=== PATIENT | female | born 1975 | race Caucasian/White ===

== ENCOUNTER 2018-01-13 09:07 | Emergency (ER) | payer OTHER ==
[2018-01-13] MEDS ORDERED: TORAdol 30 mg Injection IM ONE (09:31)
--- NOTE | 2018-01-13 09:31 | ERPHSYRPT ---
- History of Present Illness Time Seen by Provider: 01/13/18 09:24 Source: patient Exam Limitations: no limitations Patient Subjective Stated Complaint: Pt states "I was sitting on the couch wed night and and I must have moved to fast and now the right side of my neck is really hurting, and my arm and fingers are tingling." Triage Nursing Assessment: Pt alert and oriented X 3, skin pwd. PT tearful, fidgeting, rubbing her right neck and shoulder. PT ambulates with an upright steady gait, able to speak in clear full sentences. Physician History: The patient is a 42-year-old right-handed female complaining of right-sided neck pain that began Monday after taking a nap on the couch. The pain became worse on . On Monday the neck pain was not as severe that she started to get some pain going down towards her right shoulder. This morning her right thumb was tingling. She has taken ibuprofen without relief. She has tried ice and heat without relief. She denies any trauma to her neck. She went to [facility] this morning and was told to come to the ER. Her past medical history is significant for hypertension. Timing/Duration: day(s) (3), gradual onset, improved Severity: moderate Modifying Factors: Improves With: medication Associated Symptoms: denies symptoms Allergies/Adverse Reactions: childrens advil Allergy (Severe, Uncoded 11/27/15 20:30) Difficulty Breathing pt states she can take advil but not childrens advil. Home Medications: Dextroamphetamine/Amphetamine [Adderall Xr 30 mg] 30 mg PO DAILY 11/27/15 [ History] Hydrochlorothiazide 25 mg [hydroDIURIL 25 MG] 25 mg PO DAILY 11/27/15 [ History] Citalopram Hydrobromide [Celexa] 20 mg PO DAILY 01/13/18 [History] Hx Tetanus, Diphtheria Vaccination/Date Given: No Hx Influenza Vaccination/Date Given: No Hx Pneumococcal Vaccination/Date Given: No Immunizations Up to Date: Yes - Review of Systems Constitutional: No Fever, No Chills Eyes: No Symptoms Ears, Nose, & Throat: No Symptoms Respiratory: No Cough, No Dyspnea Cardiac: No Chest Pain, No Edema, No Syncope Abdominal/Gastrointestinal: No Abdominal Pain, No Nausea, No Vomiting, No Diarrhea Genitourinary Symptoms: No Dysuria Musculoskeletal: Neck Pain Skin: No Rash Neurological: Parasthesia Psychological: No Symptoms Endocrine: No Symptoms Hematologic/Lymphatic: No Symptoms Immunological/Allergic: No Symptoms All Other Systems: Reviewed and Negative - Past Medical History Pertinent Past Medical History: Yes Cardiac History: High Cholesterol, Hypertension - Past Surgical History Past Surgical History: Yes Gastrointestinal: Cholecystectomy Musculoskeletal: Orthopedic Surgery Female Surgical History: Section Other Surgical History: breast red - Social History Smoking Status: Current some day smoker How long have you smoked: 3 years Exposure to second hand smoke: No Drug Use: none Patient Lives Alone: No - Female History Hx Last Menstrual Period: 12/13/2017 Hx Now: No - Nursing Vital Signs Nursing Vital Signs: Initial Vital Signs Temperature 97.8 F 01/13/18 09:11 Pulse Rate 96 H 01/13/18 09:11 Respiratory Rate 20 01/13/18 09:11 Blood Pressure 208/117 01/13/18 09:11 O2 Sat by Pulse Oximetry 99 01/13/18 09:11 Pain Scale Pain Intensity 8 - Physical Exam General Appearance: mild distress Eye Exam: PERRL/EOMI, eyes nml inspection Ears, Nose, Throat Exam: normal ENT inspection, TMs normal, pharynx normal, moist mucous membranes Neck Exam: full range of motion, other (tenderness and spasm of right upper trapezius muscle) Respiratory Exam: normal breath sounds, lungs clear, No respiratory distress Cardiovascular Exam: regular rate/rhythm, normal heart sounds, normal peripheral pulses Gastrointestinal/Abdomen Exam: soft, normal bowel sounds, No tenderness, No mass Pelvic Exam: not done Rectal Exam: not done Back Exam: normal inspection, normal range of motion, No CVA tenderness, No vertebral tenderness Extremity Exam: normal inspection, normal range of motion, pelvis stable Neurologic Exam: alert, oriented x 3, cooperative, normal mood/affect, nml cerebellar function, nml station & gait, sensation nml (no sensory deficit of right thumb), No motor deficits Skin Exam: normal color, warm, dry, No rash Lymphatic Exam: No adenopathy SpO2 Interpretation: normal SpO2: 99 Oxygen Delivery: Room Air - Radiology Exams C-Spine X-ray Interpretation: Interpreted by me, Negative, No Subluxation, Other ( straightening of normal lordosis of C spine; otherwise neg C spine.) Ordered Tests: Active Orders 24 hr Category Date Time Status CERVICAL SPINE MINIMUM 4 VIEWS Stat Exams 01/13/18 09:37 Taken Medication Summary Discontinued Medications Generic Name Dose Route Start Last Admin Trade Name Antonette PRN Reason Stop Dose Admin Ketorolac Tromethamine 60 mg 01/13/18 09:31 01/13/18 09:34 Toradol 30 Mg Injection IM 01/13/18 09:32 60 mg STAT ONE Administration Ketorolac Tromethamine Confirm 01/13/18 09:33 Toradol 30 Mg Injection Administered 01/13/18 09:34 Dose 60 mg .ROUTE .STOpen English-MED ONE - Progress Progress: improved Counseled pt/family regarding: diagnosis, rad results - Departure Time of Disposition: 10:19 Departure Disposition: Home Clinical Impression: Trapezius muscle spasm Condition: Stable Critical Care Time: No Referrals: MITZI RYAN [Primary Care Provider] - Additional Instructions: You have a muscle spasm on the right side of her neck and in her right shoulder. The x-ray of your neck was without dislocation or fracture. You were given Toradol 60 mg IM in the ER. Take Flexeril 5 mg every 8 hours as needed for pain and muscle spasm. Apply ice to the area as needed. Follow-up with your primary medical doctor as needed. Prescriptions: Cyclobenzaprine HCl [Flexeril] 5 mg PO Q8H PRN PRN #10 tablet PRN Reason: Muscle Spasms
[2018-01-13] MEDS ORDERED: TORAdol 30 mg Injection ONE (09:33)
[2018-01-13 10:32] VITALS: BP 194/102; PULSE 88; O2SAT 98
--- NOTE | 2018-01-13 17:29 | XRAY ---
Indication: Right neck pain 3 days. Comparison: None 6 views of the cervical spine demonstrates cervical lordotic straightening, positional versus paraspinal spasm. Vertebral body heights and disc spaces maintained. No acute fracture, subluxation, or soft tissue abnormalities. Bilaterally patent foramina. Incidental prominent C7 transverse processes commonly seen with thoracic outlet syndrome. Impression: 1. Cervical lordotic straightening, positional versus paraspinal spasm. 2. Prominent C7 transverse processes. Rule out thoracic outlet syndrome.
== END 2018-01-13 10:41 | disposition home or self-care (01) ==
LOC: ED 09:07
DX: M62.830 Muscle spasm of back (principal); M54.2 Cervicalgia; R20.2 Paresthesia of skin; Z79.899 Other long term (current) drug therapy
CPT/HCPCS: 72050; 96372; 99284; J1885

== ENCOUNTER 2023-11-23 08:16 | Observation (INO) | payer OTHER ==
--- NOTE | 2023-11-23 08:55 | ERPHSYRPT ---
- History of Present Illness Time Seen by Provider: 11/23/23 08:28 Source: patient, family Exam Limitations: no limitations Patient Subjective Stated Complaint: pt began having numbness of the left foot yesterday while at work and didnt' think a whole lot about it, woke her up at approx 0130 with c/o of left sided numbness Triage Nursing Assessment: Pt brought to the ER by her , hypertensive, denies pain, unstable gait and leans towards the left, states that her head "feels heavy", no facial defecits, pulses normal, skin n/w/d, no difficulty breathing, denies N&V Physician History: 48-year-old female with history of tobacco use, hypertension, insomnia presented in the ER with complaint of left-sided numbness and weakness. Patient reports she started to have some tingly numb feeling in the left foot yesterday while she was working and around 1 AM she woke her as she was having numbness across her upper and lower left extremities with wobbliness and tendency to fall on the left. Also reports subjective feeling of weakness in the left upper and lower extremity. No chest pain palpitations or shortness of breath reported. No history of previous stroke but does have a family history. Denies any headache, facial numbness, weakness, visual disturbance or difficulty speech. Allergies/Adverse Reactions: childrens advil Allergy (Severe, Uncoded 11/23/23 08:49) Difficulty Breathing pt states she can take advil but not childrens advil. Home Medications: Hydrochlorothiazide 25 mg [hydroDIURIL 25 MG] 25 mg PO DAILY 11/27/15 [History] Dextroamphetamine/Amphetamine [Dextroamp-Amphetamin 30 mg Tab] 30 mg PO DAILY 11/23/23 [History] Ergocalciferol (Vitamin D2) [Vitamin D2] 50,000 unit PO Q7D 11/23/23 [History] Naproxen 500 mg [Naprosyn 500 MG] 500 mg PO BID 11/23/23 [History] Rosuvastatin Calcium 5 mg PO DAILY 11/23/23 [History] Valacyclovir HCl [valACYclovir] 1,000 mg PO UD 11/23/23 [History] Zolpidem Tartrate [Zolpidem Tartrate ER] 12.5 mg PO DAILY 11/23/23 [History] cloNIDine HCL 2 mg PO BID 11/23/23 [History] Hx Tetanus, Diphtheria Vaccination/Date Given: No Hx Influenza Vaccination/Date Given: No Hx Pneumococcal Vaccination/Date Given: No Travel Risk - International Travel Have you traveled outside of the country in past 3 weeks: No - Emerging Infectious Disease Are you exhibiting symptoms associated with any current EIDs: No - Review of Systems Constitutional: Weakness Eyes: No Symptoms Ears, Nose, & Throat: No Symptoms Respiratory: No Symptoms Cardiac: No Symptoms Abdominal/Gastrointestinal: No Symptoms Genitourinary Symptoms: No Symptoms Musculoskeletal: No Symptoms Skin: No Symptoms Neurological: Focal Weakness, Gait Changes, Sensory Changes Psychological: No Symptoms Endocrine: No Symptoms Hematologic/Lymphatic: No Symptoms Immunological/Allergic: No Symptoms - Past Medical History Pertinent Past Medical History: Yes Cardiac History: High Cholesterol, Hypertension - Past Surgical History Past Surgical History: Yes Gastrointestinal: Cholecystectomy Musculoskeletal: Orthopedic Surgery Female Surgical History: Section Other Surgical History: . - Female History Hx Now: (unkn) - Social History Smoking Status: Current every day smoker How long have you smoked: 3 years Exposure to second hand smoke: Yes Drug Use: none Patient Lives Alone: No - Social Determinants of Health Will the patient participate in the screening: Yes Do you worry about a steady place to live?: No Do you have any problems with any of the following?: No known problems In the past 12 months,have you had to go without utilities?: No Transportation Issues: No Has anyone in your support network made you feel unsafe?: No Have you or anyone in your house had to go without enough: No - Nursing Vital Signs Nursing Vital Signs: Initial Vital Signs Temperature 97.7 F 11/23/23 08:23 Pulse Rate 77 11/23/23 08:23 Respiratory Rate 20 11/23/23 08:23 Blood Pressure 202/117 11/23/23 08:23 Pain Scale Pain Intensity 0 - Vadim Coma Scale Best Eye Response (Hennessey): (4) open spontaneously Best Verbal Response (Vadim): (5) oriented Best Motor Response (Hennessey): (6) obeys commands Hennessey Total: 15 - Physical Exam General Appearance: no apparent distress, alert, anxiety Eye Exam: bilateral eye: normal inspection, PERRL, EOMI Ears, Nose, Throat Exam: normal ENT inspection, TMs normal, pharynx normal, moist mucous membranes Neck Exam: normal inspection, non-tender, supple, full range of motion Respiratory: normal breath sounds, lungs clear Cardiovascular: regular rate/rhythm, normal heart sounds Gastrointestinal: soft, normal bowel sounds, No tenderness Back Exam: normal inspection, normal range of motion Extremity Exam: normal inspection, normal range of motion, pelvis stable Mental Status: alert, oriented x 3, 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 Exam: normal hearing, normal speech, PERRL Coordination/Gait: negative Romberg's sign, No normal finger to nose (Left), No normal gait Motor/Sensory: no motor deficit, no sensory deficit DTR: bicep (R): 2+, bicep (L): 2+, knee (R): 2+, knee (L): 3+ Skin Exam: normal color SpO2 Interpretation: normal SpO2: 95 O2 Delivery: Room Air - Course EKG Interpreted by Me: RATE (67), Sinus Rhythm, NORMAL AXIS, prolonged QT interval, Non-specific ST Changes Ordered Tests: Active Orders 24 hr Category Date Time Status EKG-ER Only STAT Care 11/23/23 08:28 Active IV Insertion STAT Care 11/23/23 08:28 Active NPO (ED) STAT Care 11/23/23 08:29 Active POCT Glucose Check ONCE Care 11/23/23 08:28 Active Consult Neurology ROUTINE Cons 11/23/23 09:52 Completed CHEST 1 VIEW (PORTABLE) Stat Exams 11/23/23 08:[address] ANGIOGRAPHY NECK [CT] Stat Exams 11/23/23 09:51 Completed CTA HEAD W AND/OR WO CONTRAST [CT] Stat Exams 11/23/23 09:51 Completed HEAD WITHOUT CONTRAST [CT] Stat Exams 11/23/23 08:29 Completed CBC W DIFF Stat Lab 11/23/23 09:05 Completed CMP Stat Lab 11/23/23 09:05 Completed MAG [MAGNESIUM] Stat Lab 11/23/23 09:05 Completed POCT GLUCOSE Stat Lab 11/23/23 09:02 Completed PROTIME WITH INR Stat Lab 11/23/23 09:05 Completed PTT Stat Lab 11/23/23 09:05 Completed TROPONIN Q3H Lab 11/23/23 09:05 Completed TROPONIN Q3H Lab 11/23/23 10:52 Completed TROPONIN Q3H Lab 11/23/23 14:30 Ordered TROPONIN Q3H Lab 11/23/23 17:30 Ordered UA W/RFX UR CULTURE Stat Lab 11/23/23 09:09 Completed Medication Summary Generic Name Dose Route Start Last Admin Trade Name Antonette PRN Reason Stop Dose Admin Sodium Chloride 1,000 mls @ 125 mls/hr 11/23/23 08:30 11/23/23 08:58 Sodium Chloride 0.9% 1000 Ml IV 12/23/23 08:29 125 mls/hr .Q8H [place] Administration Discontinued Medications Generic Name Dose Route Start Last Admin Trade Name Antonette PRN Reason Stop Dose Admin Aspirin 81 mg 11/23/23 11:38 Aspirin 81 Mg Tab.Chew PO 11/23/23 11:39 STAT ONE Atorvastatin Calcium 80 mg 11/23/23 11:38 Atorvastatin Calcium 40 Mg Tablet PO 11/23/23 11:39 STAT STA Clopidogrel Bisulfate 300 mg 11/23/23 11:38 Clopidogrel Bisulfate 75 Mg Tablet PO 11/23/23 11:39 STAT ONE Lab/Rad Data: Laboratory Result Diagrams 11/23/23 09:05 11/23/23 09:05 Laboratory Results 11/23/23 11/23/23 11/23/23 Range/Units 10:52 09:09 09:05 WBC (3.98-10.04) x10^3/uL RBC (3.93-5.22) x10^6/uL Hgb (11.2-15.7) g/dL Hct (34.1-44.9) % MCV (79.4-94.8) fL MCH (25.6-32.2) pg MCHC (32.2-35.5) g/dL RDW (11.7-14.4) % Plt Count (182-369) x10^3/uL MPV (9.4-12.3) fL Gran % (34.0-71.1) % Immature Gran % (Auto) (0.001-0.429) % Nucleat RBC Rel Count (0.00-0.2) % Eos # (Auto) (0.04-0.36) x10^3/uL Immature Gran # (Auto) (0.001-0.031) x10^3u/L Absolute Lymphs (auto) (1.18-3.74) x10^3/uL Absolute Monos (auto) (0.24-0.86) x10^3/uL Absolute Nucleated RBC (0.00-0.012) x10^3u/L Lymphocytes % (19.3-51.7) % Monocytes % (4.7-12.5) % Eosinophils % (0.7-5.8) % Basophils % (0.1-1.2) % Absolute Granulocytes (1.56-6.13) x10^3/uL Basophils # (0.01-0.08) x10^3/uL PT (9.4-12.5) SECONDS INR (0.8-3.0) APTT (25.1-36.5) SECONDS Sodium (135-145) mmol/L Potassium (3.5-5.1) mmol/L Chloride (98-107) mmol/L Carbon Dioxide (22-30) mmol/L Anion Gap (5-15) MEQ/L BUN (7-17) mg/dL Creatinine (0.52-1.04) mg/dL Estimated GFR ML/MIN Glucose (74-106) mg/dL POC Glucometer (74 to 106) mg/dL Calcium (8.4-10.2) mg/dL Magnesium 2.0 (1.6-2.3) mg/dL Total Bilirubin (0.2-1.3) mg/dL AST (14-36) U/L ALT (0-35) U/L Alkaline Phosphatase (38-126) U/L Troponin I 0.013 0.013 (0.000-0.033) ng/mL Serum Total Protein (6.3-8.2) g/dL Albumin (3.5-5.0) g/dL Urine Color Yellow (Yellow) Urine Appearance Clear (Clear) Urine pH 6.0 (4.6-8.0) Ur Specific [place] 1.010 (1.005-1.030) Urine Protein Negative (Negative) Urine Glucose (UA) Negative (Negative) mg/dL Urine Ketones Negative (Negative) Urine Blood Negative (Negative) Urine Nitrite Negative (Negative) Urine Bilirubin Negative (Negative) Urine Urobilinogen 0.2 (0.2) mg/dL Ur Leukocyte Esterase Negative (Negative) U Hyaline Cast (Auto) NONE SEEN (0-2) /LPF Urine Microscopic RBC 0-2 (0-5) /HPF Urine Microscopic WBC 0-2 (0-5) /HPF Ur Epithelial Cells None Seen (None Seen) /HPF Urine Bacteria None Seen (None Seen) /HPF Urine Culture Reflexed NO (NO) 11/23/23 11/23/23 11/23/23 Range/Units 09:05 09:05 09:05 WBC 10.1 H (3.98-10.04) x10^3/uL RBC 4.17 (3.93-5.22) x10^6/uL Hgb 10.5 L (11.2-15.7) g/dL Hct 33.1 L (34.1-44.9) % MCV 79.4 (79.4-94.8) fL MCH 25.2 L (25.6-32.2) pg MCHC 31.7 L (32.2-35.5) g/dL RDW 14.6 H (11.7-14.4) % Plt Count 337 (182-369) x10^3/uL MPV 10.1 (9.4-12.3) fL Gran % 72.4 H (34.0-71.1) % Immature Gran % (Auto) 0.5 H (0.001-0.429) % Nucleat RBC Rel Count 0.0 (0.00-0.2) % Eos # (Auto) 0.34 (0.04-0.36) x10^3/uL Immature Gran # (Auto) 0.05 H (0.001-0.031) x10^3u/L Absolute Lymphs (auto) 1.52 (1.18-3.74) x10^3/uL Absolute Monos (auto) 0.81 (0.24-0.86) x10^3/uL Absolute Nucleated RBC 0.00 (0.00-0.012) x10^3u/L Lymphocytes % 15.0 L (19.3-51.7) % Monocytes % 8.0 (4.7-12.5) % Eosinophils % 3.4 (0.7-5.8) % Basophils % 0.7 (0.1-1.2) % Absolute Granulocytes 7.35 H (1.56-6.13) x10^3/uL Basophils # 0.07 (0.01-0.08) x10^3/uL PT 9.7 (9.4-12.5) SECONDS INR 0.88 (0.8-3.0) APTT 26.0 (25.1-36.5) SECONDS Sodium 133 L (135-145) mmol/L Potassium 3.4 L (3.5-5.1) mmol/L Chloride 98 (98-107) mmol/L Carbon Dioxide 26 (22-30) mmol/L Anion Gap 12.5 (5-15) MEQ/L BUN 18 H (7-17) mg/dL Creatinine 1.00 (0.52-1.04) mg/dL Estimated GFR 69.1 ML/MIN Glucose 119 H (74-106) mg/dL POC Glucometer (74 to 106) mg/dL Calcium 9.0 (8.4-10.2) mg/dL Magnesium (1.6-2.3) mg/dL Total Bilirubin 0.40 (0.2-1.3) mg/dL AST 24 (14-36) U/L ALT 18 (0-35) U/L Alkaline Phosphatase 92 (38-126) U/L Troponin I (0.000-0.033) ng/mL Serum Total Protein 7.1 (6.3-8.2) g/dL Albumin 4.2 (3.5-5.0) g/dL Urine Color (Yellow) Urine Appearance (Clear) Urine pH (4.6-8.0) Ur Specific [place] (1.005-1.030) Urine Protein (Negative) Urine Glucose (UA) (Negative) mg/dL Urine Ketones (Negative) Urine Blood (Negative) Urine Nitrite (Negative) Urine Bilirubin (Negative) Urine Urobilinogen (0.2) mg/dL Ur Leukocyte Esterase (Negative) U Hyaline Cast (Auto) (0-2) /LPF Urine Microscopic RBC (0-5) /HPF Urine Microscopic WBC (0-5) /HPF Ur Epithelial Cells (None Seen) /HPF Urine Bacteria (None Seen) /HPF Urine Culture Reflexed (NO) 11/23/23 Range/Units 09:02 WBC (3.98-10.04) x10^3/uL RBC (3.93-5.22) x10^6/uL Hgb (11.2-15.7) g/dL Hct (34.1-44.9) % MCV (79.4-94.8) fL MCH (25.6-32.2) pg MCHC (32.2-35.5) g/dL RDW (11.7-14.4) % Plt Count (182-369) x10^3/uL MPV (9.4-12.3) fL Gran % (34.0-71.1) % Immature Gran % (Auto) (0.001-0.429) % Nucleat RBC Rel Count (0.00-0.2) % Eos # (Auto) (0.04-0.36) x10^3/uL Immature Gran # (Auto) (0.001-0.031) x10^3u/L Absolute Lymphs (auto) (1.18-3.74) x10^3/uL Absolute Monos (auto) (0.24-0.86) x10^3/uL Absolute Nucleated RBC (0.00-0.012) x10^3u/L Lymphocytes % (19.3-51.7) % Monocytes % (4.7-12.5) % Eosinophils % (0.7-5.8) % Basophils % (0.1-1.2) % Absolute Granulocytes (1.56-6.13) x10^3/uL Basophils # (0.01-0.08) x10^3/uL PT (9.4-12.5) SECONDS INR (0.8-3.0) APTT (25.1-36.5) SECONDS Sodium (135-145) mmol/L Potassium (3.5-5.1) mmol/L Chloride (98-107) mmol/L Carbon Dioxide (22-30) mmol/L Anion Gap (5-15) MEQ/L BUN (7-17) mg/dL Creatinine (0.52-1.04) mg/dL Estimated GFR ML/MIN Glucose (74-106) mg/dL POC Glucometer 119 H (74 to 106) mg/dL Calcium (8.4-10.2) mg/dL Magnesium (1.6-2.3) mg/dL Total Bilirubin (0.2-1.3) mg/dL AST (14-36) U/L ALT (0-35) U/L Alkaline Phosphatase (38-126) U/L Troponin I (0.000-0.033) ng/mL Serum Total Protein (6.3-8.2) g/dL Albumin (3.5-5.0) g/dL Urine Color (Yellow) Urine Appearance (Clear) Urine pH (4.6-8.0) Ur Specific [place] (1.005-1.030) Urine Protein (Negative) Urine Glucose (UA) (Negative) mg/dL Urine Ketones (Negative) Urine Blood (Negative) Urine Nitrite (Negative) Urine Bilirubin (Negative) Urine Urobilinogen (0.2) mg/dL Ur Leukocyte Esterase (Negative) U Hyaline Cast (Auto) (0-2) /LPF Urine Microscopic RBC (0-5) /HPF Urine Microscopic WBC (0-5) /HPF Ur Epithelial Cells (None Seen) /HPF Urine Bacteria (None Seen) /HPF Urine Culture Reflexed (NO) - Progress Progress: improved, re-examined Progress Note: 11/23/23 11:54 48-year-old is evaluated in the ER for left-sided tingling numbness with some weakness and gait disturbance. Symptoms been going on since yesterday. Patient is not a candidate for thrombolysis. Patient CT head is negative for any acute intracranial findings per stroke protocol. She is properly evaluated by neurology Dr. Santiago, recommended obtaining CTAs head and neck and if negative patient can be admitted. Patient CTA head and neck are negative for any obvious/significant stenosis. She is given a loading dose of Plavix 300 mg and 81 mg aspirin along with Lipitor. Workup showed white count of 10, chemistries fairly unremarkable, EKG is sinus rhythm with no ST elevations and no arrhyth mias. Patient has negative initial troponins. I believe patient needs full stroke workup including MRIs and echo along with other labs. Patient discussed with Dr. Singleton, reviewed history, workup and agreed with admission. I have shared the results of workup with patient and family and plan of admission which they understand and agree. Taking into account patient's history,/physical exam/workup/discussion with specialist, interpretation of lab work and imaging it is one of the higher level complexity. Discussed with Dr.: Other (Dr. Singleton hospitalist, Dr. Santiago [facility]y) Will see patient in: hospital (observation) Counseled pt/family regarding: lab results, diagnosis, rad results, smoking cessation Medical Desision Making - Independent Historian Additional History obtained from: Spouse - Discussion of managment Care discussed with:: specialist ([facility] neurology Dr. Santiago and hospitalist Dr. Singleton) Reviewed:: Test results, Need for additional workup Agreed on:: Treatment plan, place in obs Will see patient: in hospital - Diagnostic Testing Diagnostic test were ordered, analyzed, and reviewed by me: Yes Radiological Interpretation: Reviewed by me - Risk of complications The pt has a mod risk of morbidity or mortality based on: Need for prescription drug management The pt has a high risk of morbidity or mortality based on: Decision regarding hospitilization or escalation of hosp level of care - Departure Departure Disposition: Observation Clinical Impression: Stroke-like symptom Condition: Stable Critical Care Time: No Referrals: EILEEN BA NP [Primary Care Provider] - Follow up/PCP as directed
[2023-11-23] MEDS: Sodium Chloride 0.9% 1000 ML 1,000 ML IV SCH (08:58)
[2023-11-23] MEDS ORDERED: Sodium Chloride 0.9% 1000 ML 1,000 ML ONE (08:58)
[2023-11-23 09:11] LABS: Absolute Neutrophil Ct (ANC) 7.35 x10^3/uL (1.56-6.13); BASOPHIL % 0.7 % (0.1-1.2); Basophil (Absolute #) 0.07 x10^3/uL (0.01-0.08); Eosinophil % 3.4 % (0.7-5.8); Eosinophil (Absolute #) 0.34 x10^3/uL (0.04-0.36); Hematocrit 33.1 % (34.1-44.9); Hemoglobin 10.5 g/dL (11.2-15.7); IMMATURE GRAN # 0.05 x10^3u/L (0.001-0.031); IMMATURE GRAN % 0.5 % (0.001-0.429); Lymphocyte (Absolute #) 1.52 x10^3/uL (1.18-3.74); Mean Cell Volume 79.4 fL (79.4-94.8); Mean Corpuscular Hemoglobin 25.2 pg (25.6-32.2); Mean Corpuscular Hgb Concent. 31.7 g/dL (32.2-35.5); Mean Platelet Volume 10.1 fL (9.4-12.3); Monocyte (Absolute #) 0.81 x10^3/uL (0.24-0.86); Neutrophil % 72.4 % (34.0-71.1); Platelet Count 337 x10^3/uL (182-369); Red Blood Count 4.17 x10^6/uL (3.93-5.22); Red Cell Distribution Width 14.6 % (11.7-14.4); White Blood Count 10.1 x10^3/uL (3.98-10.04)
--- NOTE | 2023-11-23 09:17 | XRAY ---
Indication: Left-sided numbness. Weakness. Person: November 27, 2016 Portable chest now demonstrates cardiomegaly. No focal infiltrate, consolidation, or large effusion. Bony thorax intact.
--- NOTE | 2023-11-23 09:20 | XRAY ---
Indication: Left-sided numbness and weakness. Multiple contiguous axial images obtained through the head without contrast. Comparison: None Normal appearing brain parenchyma, ventricles, and bony calvarium. Visualized paranasal sinuses and mastoid air cells are clear. Impression: Normal CT head without contrast exam.
[2023-11-23 09:24] LABS: ALBUMIN 4.2 g/dL (3.5-5.0); ANION GAP 12.5 MEQ/L (5-15); BILIRUBIN,TOTAL 0.4 mg/dL (0.2-1.3); EST GLOMERULAR FILTRATION RATE 69.1 ML/MIN; Potassium 3.4 mmol/L (3.5-5.1); Total Protein 7.1 g/dL (6.3-8.2)
[2023-11-23 09:27] LABS: INR 0.88 (0.8-3.0); PROTIME 9.7 SECONDS (9.4-12.5)
[2023-11-23 09:35] LABS: Appearance Clear (Clear); Bacteria None Seen /HPF (None Seen); Bilirubin Negative (Negative); Blood Negative (Negative); Epithelial Cells None Seen /HPF (None Seen); Glucose, Urine Negative (Negative); Hyaline Casts NONE SEEN /LPF (0-2); Ketones Negative (Negative); Leukocyte Esterase Negative (Negative); Nitrite Negative (Negative); Protein,Urine Dip Negative (Negative); RBC 0-2 /HPF (0-5); Urobilinogen 0.2 mg/dL (0.2); WBC 0-2 /HPF (0-5)
[2023-11-23 09:36] LABS: TROPONIN 0.013 ng/mL (0.000-0.033)
[2023-11-23 09:41] LABS: ADD URINE CULTURE? NO (NO)
--- NOTE | 2023-11-23 11:32 | XRAY ---
Indication: Left-sided numbness/weakness. Normal CT head exam. Conventional contrast enhanced CTA neck performed using 80 cc Isovue 370 contrast. 2-D sagittal and coronal reformatted images obtained. Additional 3-D reformatted images obtained using a separate workstation. Comparison: None Normal CTA appearance to the visualized aortic arch with widely patent branching right brachiocephalic, left common carotid, and left subclavian arteries. Normal CTA appearance to the common carotid, carotid bulb, internal carotid, and external carotid arteries bilaterally. Normal CTA appearance to the vertebral arteries bilaterally with the left slightly larger in caliber. Visualized soft tissues demonstrates a few centimeter/subcentimeter cervical lymph nodes bilaterally, none pathologically enlarged. Thyroid gland enhances homogeneously. Parotid and submandibular glands are bilaterally symmetric. Supra-and infraglottic airway widely patent. Visualized osseous structures intact. Lung apices clear. Impression: Normal CTA neck with contrast exam.
--- NOTE | 2023-11-23 11:36 | XRAY ---
Indication: Left-sided numbness/weakness. Normal CT head exam. Conventional contrast enhanced CTA head performed using 80 cc Isovue 370 contrast. 2-D sagittal and coronal reformatted images obtained. Additional 3-D reformatted images obtained using a separate workstation. Comparison: None Distal internal carotid arteries demonstrates very minimal arteriosclerotic calcifications both parasellar segments without critical stenosis, dissection, or AV malformation. Normal carotid terminus with normal branching A1 and M1 segments bilaterally. More distal anterior cerebral and middle cerebral arteries are normal in CTA appearance. Also normal appearing anterior communicating and right posterior communicating arteries. Posterior circulation demonstrates normal CTA appearance to the distal left/right vertebral, basilar, left/right posterior cerebral, and left/right superior cerebellar arteries. Venous sinuses/drainage are unremarkable. Brain parenchyma is negative for abnormal enhancing intra or extra-axial mass. Impression: Very minimal arteriosclerotic calcifications both parasellar internal carotid arteries without critical stenosis/obstruction. Remaining CTA head with contrast exam is normal.
[2023-11-23] MEDS ORDERED: BABY ASPIRIN 81 MG CHEW ONE (12:00)
[2023-11-23] MEDS ORDERED: PLAVIX Tablet ONE (12:00)
[2023-11-23] MEDS ORDERED: LIPITOR 40MG ONE (12:00)
[2023-11-23] MEDS: BABY ASPIRIN 81 MG CHEW PO ONE (12:01)
[2023-11-23] MEDS: PLAVIX Tablet PO ONE (12:01)
[2023-11-23] MEDS: LIPITOR 40MG PO STA (12:01)
[2023-11-23] MEDS ORDERED: CLONIDINE HCL 0.1 MG PO SCH (13:06)
[2023-11-23] MEDS ORDERED: NON-FORMULARY ITEM (Valacyclovir Hcl [Valacyclovir] 1,000 MG Tablet) PO SCH (13:15)
--- NOTE | 2023-11-23 13:21 | PCM.HP ---
History of Present Illness - Chief Complaint Chief Complaint: left sided weakness Date: 11/23/23 History of Present Illness: is a 48 year old female with PMHX of hyperlipidemia, HTN, daily smoker, insomnia, and obesity. She presented in the ER with complaint of left-sided numbness and weakness. Patient reports she started to have some tingly numb feeling in the left foot yesterday while she was working and around 1 AM she woke her as she was having numbness across her upper and lower left extremities with wobbliness and tendency to fall on the left. Also reports subjective feeling of weakness in the left upper and lower extremity. No chest pain palpitations or shortness of breath reported. No history of previous stroke but does have a family history. Denies any headache, facial numbness, weakness, visual disturbance or difficulty speech. Tele- neurology consulted in ER and recommended MRI and echo for further evaluation of sxs. K+ 3.4 and replaced. ASA, Statin, Plavix and IV fluids started in the ER. CT and CTA negative. CXR shows cardiomegly. She reports no know hx of this and feels she keeps her BP well controlled most of the time. Trop x2 negative. She denies CP, SOB, abd pain, N/V/D. Bp elevated and she reports she did not take her meds yet today. Will restart them. NIHSS score 1, continue ASA 81mg daily. If ok with neurology will also start Plavix, awaiting recs. - Review of Systems Constitutional: No Fever, No Chills Eyes: No Symptoms Ears, Nose, & Throat: No Symptoms Respiratory: No Cough, No Short Of Breath Cardiac: No Chest Pain, No Edema, No Syncope Abdominal/Gastrointestinal: No Abdominal Pain, No Nausea, No Vomiting, No Diarrhea Genitourinary Symptoms: No Dysuria Musculoskeletal: No Back Pain, No Neck Pain Skin: No Rash Neurological: Focal Weakness (left sided), No Dizziness, No Sensory Changes Psychological: No Symptoms Endocrine: No Symptoms Hematologic/Lymphatic: No Symptoms Immunological/Allergic: No Symptoms Medications & Allergies Home Medications: Home Medication List Hydrochlorothiazide 25 mg [hydroDIURIL 25 MG] 25 mg PO DAILY 11/27/15 [History Confirmed 11/23/23] Dextroamphetamine/Amphetamine [Dextroamp-Amphetamin 30 mg Tab] 30 mg PO DAILY 11/23/23 [History Confirmed 11/23/23] Ergocalciferol (Vitamin D2) [Vitamin D2] 50,000 unit PO Q7D 11/23/23 [History Confirmed 11/23/23] Naproxen 500 mg [Naprosyn 500 MG] 500 mg PO BID PRN 11/23/23 [History Confirmed 11/23/23] Rosuvastatin Calcium 5 mg PO DAILY 11/23/23 [History Confirmed 11/23/23] Valacyclovir HCl [valACYclovir] 1,000 mg PO UD 11/23/23 [History Confirmed 11/23/23] Zolpidem Tartrate [Zolpidem Tartrate ER] 12.5 mg PO HS 11/23/23 [History Confirmed 11/23/23] cloNIDine HCL 2 mg PO BID 11/23/23 [History Confirmed 11/23/23] Allergies/Adverse Reactions: Allergies Allergy/AdvReac Type Severity Reaction Status Date / Time childrens advil Allergy Severe Difficulty Uncoded 11/23/23 12:51 Breathing - Past Medical History Past Medical History: Yes Neurological History: No Pertinent History ENT History: No Pertinent History Cardiac History: High Cholesterol, Hypertension Respiratory History: No Pertinent History Endocrine Medical History: No Pertinent History Musculoskelatal History: No Pertinent History GI Medical History: No Pertinent History History: No Pertinent History Pyscho-Social History: Other Reproductive Disorders: No Pertinent History Comment: ADHD - Female History Are you now?: (unkn) - Past Surgical History Past Surgical History: Yes Neuro Surgical History: No Pertinent History Cardiac History: No Pertinent History Respiratory Surgery: No Pertinent History GI Surgical History: Cholecystectomy Musculskeletal Surgical Hx: Orthopedic Surgery Female Surgical History: Section Other Surgical History: ANKLE SURGERY. BREAST REDUCTION - Social History Smoking Status: Current every day smoker How long have you smoked: 3 years Exposure to second hand smoke: Yes Alcohol: Rarely Drug Use: none - Social Determinants of Health Will the patient participate in the screening: Yes Do you worry about a steady place to live?: No Do you have any problems with any of the following?: No known problems In the past 12 months,have you had to go without utilities?: No Have you or anyone in your house had to go without enough: No Transportation Issues: No Has anyone in your support network made you feel unsafe?: No - Physical Exam Vital Signs: Vital Signs - 24 hr Temp Pulse Resp BP BP Pulse Ox 11/23/23 12:04 95 11/23/23 11:30 152/83 11/23/23 11:00 65 18 149/88 11/23/23 10:30 68 22 175/101 11/23/23 10:18 73 23 176/91 11/23/23 10:00 72 16 171/101 11/23/23 09:30 73 25 H 164/100 11/23/23 09:01 70 19 149/111 11/23/23 08:35 72 21 202/117 11/23/23 08:23 97.7 F 77 20 202/117 General Appearance: no apparent distress, alert Neurologic Exam: alert, oriented x 3, cooperative, normal mood/affect, nml cerebellar function, nml station & gait, sensation nml, motor weakness (LLE), No motor deficits Eye Exam: PERRL/EOMI, eyes nml inspection Ears, Nose, Throat Exam: normal ENT inspection, TMs normal, pharynx normal, moist mucous membranes Neck Exam: normal inspection, non-tender, supple, full range of motion Respiratory Exam: normal breath sounds, lungs clear, No respiratory distress Cardiovascular Exam: regular rate/rhythm, normal heart sounds, normal peripheral pulses Gastrointestinal/Abdomen Exam: soft, normal bowel sounds, No tenderness, No mass Back Exam: normal inspection, normal range of motion, No CVA tenderness, No vertebral tenderness Extremity Exam: normal inspection, normal range of motion, pelvis stable Skin Exam: normal color, warm, dry, No rash Lymphatic Exam: No adenopathy Results - Labs Lab/Micro Results: Lab Results-Last 24 Hours 11/23/23 11/23/23 11/23/23 Range/Units 09:02 09:05 09:05 WBC 10.1 H (3.98-10.04) x10^3/uL RBC 4.17 (3.93-5.22) x10^6/uL Hgb 10.5 L (11.2-15.7) g/dL Hct 33.1 L (34.1-44.9) % MCV 79.4 (79.4-94.8) fL MCH 25.2 L (25.6-32.2) pg MCHC 31.7 L (32.2-35.5) g/dL RDW 14.6 H (11.7-14.4) % Plt Count 337 (182-369) x10^3/uL MPV 10.1 (9.4-12.3) fL Gran % 72.4 H (34.0-71.1) % Immature Gran % (Auto) 0.5 H (0.001-0.429) % Nucleat RBC Rel Count 0.0 (0.00-0.2) % Eos # (Auto) 0.34 (0.04-0.36) x10^3/uL Immature Gran # (Auto) 0.05 H (0.001-0.031) x10^3u/L Absolute Lymphs (auto) 1.52 (1.18-3.74) x10^3/uL Absolute Monos (auto) 0.81 (0.24-0.86) x10^3/uL Absolute Nucleated RBC 0.00 (0.00-0.012) x10^3u/L Lymphocytes % 15.0 L (19.3-51.7) % Monocytes % 8.0 (4.7-12.5) % Eosinophils % 3.4 (0.7-5.8) % Basophils % 0.7 (0.1-1.2) % Absolute Granulocytes 7.35 H (1.56-6.13) x10^3/uL Basophils # 0.07 (0.01-0.08) x10^3/uL PT (9.4-12.5) SECONDS INR (0.8-3.0) APTT (25.1-36.5) SECONDS Sodium 133 L (135-145) mmol/L Potassium 3.4 L (3.5-5.1) mmol/L Chloride 98 (98-107) mmol/L Carbon Dioxide 26 (22-30) mmol/L Anion Gap 12.5 (5-15) MEQ/L BUN 18 H (7-17) mg/dL Creatinine 1.00 (0.52-1.04) mg/dL Estimated GFR 69.1 ML/MIN Glucose 119 H (74-106) mg/dL POC Glucometer 119 H (74 to 106) mg/dL Calcium 9.0 (8.4-10.2) mg/dL Magnesium (1.6-2.3) mg/dL Total Bilirubin 0.40 (0.2-1.3) mg/dL AST 24 (14-36) U/L ALT 18 (0-35) U/L Alkaline Phosphatase 92 (38-126) U/L Troponin I (0.000-0.033) ng/mL Serum Total Protein 7.1 (6.3-8.2) g/dL Albumin 4.2 (3.5-5.0) g/dL Urine Color (Yellow) Urine Appearance (Clear) Urine pH (4.6-8.0) Ur Specific [place] (1.005-1.030) Urine Protein (Negative) Urine Glucose (UA) (Negative) mg/dL Urine Ketones (Negative) Urine Blood (Negative) Urine Nitrite (Negative) Urine Bilirubin (Negative) Urine Urobilinogen (0.2) mg/dL Ur Leukocyte Esterase (Negative) U Hyaline Cast (Auto) (0-2) /LPF Urine Microscopic RBC (0-5) /HPF Urine Microscopic WBC (0-5) /HPF Ur Epithelial Cells (None Seen) /HPF Urine Bacteria (None Seen) /HPF Urine Culture Reflexed (NO) 11/23/23 11/23/23 11/23/23 Range/Units 09:05 09:05 09:09 WBC (3.98-10.04) x10^3/uL RBC (3.93-5.22) x10^6/uL Hgb (11.2-15.7) g/dL Hct (34.1-44.9) % MCV (79.4-94.8) fL MCH (25.6-32.2) pg MCHC (32.2-35.5) g/dL RDW (11.7-14.4) % Plt Count (182-369) x10^3/uL MPV (9.4-12.3) fL Gran % (34.0-71.1) % Immature Gran % (Auto) (0.001-0.429) % Nucleat RBC Rel Count (0.00-0.2) % Eos # (Auto) (0.04-0.36) x10^3/uL Immature Gran # (Auto) (0.001-0.031) x10^3u/L Absolute Lymphs (auto) (1.18-3.74) x10^3/uL Absolute Monos (auto) (0.24-0.86) x10^3/uL Absolute Nucleated RBC (0.00-0.012) x10^3u/L Lymphocytes % (19.3-51.7) % Monocytes % (4.7-12.5) % Eosinophils % (0.7-5.8) % Basophils % (0.1-1.2) % Absolute Granulocytes (1.56-6.13) x10^3/uL Basophils # (0.01-0.08) x10^3/uL PT 9.7 (9.4-12.5) SECONDS INR 0.88 (0.8-3.0) APTT 26.0 (25.1-36.5) SECONDS Sodium (135-145) mmol/L Potassium (3.5-5.1) mmol/L Chloride (98-107) mmol/L Carbon Dioxide (22-30) mmol/L Anion Gap (5-15) MEQ/L BUN (7-17) mg/dL Creatinine (0.52-1.04) mg/dL Estimated GFR ML/MIN Glucose (74-106) mg/dL POC Glucometer (74 to 106) mg/dL Calcium (8.4-10.2) mg/dL Magnesium 2.0 (1.6-2.3) mg/dL Total Bilirubin (0.2-1.3) mg/dL AST (14-36) U/L ALT (0-35) U/L Alkaline Phosphatase (38-126) U/L Troponin I 0.013 (0.000-0.033) ng/mL Serum Total Protein (6.3-8.2) g/dL Albumin (3.5-5.0) g/dL Urine Color Yellow (Yellow) Urine Appearance Clear (Clear) Urine pH 6.0 (4.6-8.0) Ur Specific [place] 1.010 (1.005-1.030) Urine Protein Negative (Negative) Urine Glucose (UA) Negative (Negative) mg/dL Urine Ketones Negative (Negative) Urine Blood Negative (Negative) Urine Nitrite Negative (Negative) Urine Bilirubin Negative (Negative) Urine Urobilinogen 0.2 (0.2) mg/dL Ur Leukocyte Esterase Negative (Negative) U Hyaline Cast (Auto) NONE SEEN (0-2) /LPF Urine Microscopic RBC 0-2 (0-5) /HPF Urine Microscopic WBC 0-2 (0-5) /HPF Ur Epithelial Cells None Seen (None Seen) /HPF Urine Bacteria None Seen (None Seen) /HPF Urine Culture Reflexed NO (NO) 11/23/23 Range/Units 10:52 WBC (3.98-10.04) x10^3/uL RBC (3.93-5.22) x10^6/uL Hgb (11.2-15.7) g/dL Hct (34.1-44.9) % MCV (79.4-94.8) fL MCH (25.6-32.2) pg MCHC (32.2-35.5) g/dL RDW (11.7-14.4) % Plt Count (182-369) x10^3/uL MPV (9.4-12.3) fL Gran % (34.0-71.1) % Immature Gran % (Auto) (0.001-0.429) % Nucleat RBC Rel Count (0.00-0.2) % Eos # (Auto) (0.04-0.36) x10^3/uL Immature Gran # (Auto) (0.001-0.031) x10^3u/L Absolute Lymphs (auto) (1.18-3.74) x10^3/uL Absolute Monos (auto) (0.24-0.86) x10^3/uL Absolute Nucleated RBC (0.00-0.012) x10^3u/L Lymphocytes % (19.3-51.7) % Monocytes % (4.7-12.5) % Eosinophils % (0.7-5.8) % Basophils % (0.1-1.2) % Absolute Granulocytes (1.56-6.13) x10^3/uL Basophils # (0.01-0.08) x10^3/uL PT (9.4-12.5) SECONDS INR (0.8-3.0) APTT (25.1-36.5) SECONDS Sodium (135-145) mmol/L Potassium (3.5-5.1) mmol/L Chloride (98-107) mmol/L Carbon Dioxide (22-30) mmol/L Anion Gap (5-15) MEQ/L BUN (7-17) mg/dL Creatinine (0.52-1.04) mg/dL Estimated GFR ML/MIN Glucose (74-106) mg/dL POC Glucometer (74 to 106) mg/dL Calcium (8.4-10.2) mg/dL Magnesium (1.6-2.3) mg/dL Total Bilirubin (0.2-1.3) mg/dL AST (14-36) U/L ALT (0-35) U/L Alkaline Phosphatase (38-126) U/L Troponin I 0.013 (0.000-0.033) ng/mL Serum Total Protein (6.3-8.2) g/dL Albumin (3.5-5.0) g/dL Urine Color (Yellow) Urine Appearance (Clear) Urine pH (4.6-8.0) Ur Specific [place] (1.005-1.030) Urine Protein (Negative) Urine Glucose (UA) (Negative) mg/dL Urine Ketones (Negative) Urine Blood (Negative) Urine Nitrite (Negative) Urine Bilirubin (Negative) Urine Urobilinogen (0.2) mg/dL Ur Leukocyte Esterase (Negative) U Hyaline Cast (Auto) (0-2) /LPF Urine Microscopic RBC (0-5) /HPF Urine Microscopic WBC (0-5) /HPF Ur Epithelial Cells (None Seen) /HPF Urine Bacteria (None Seen) /HPF Urine Culture Reflexed (NO) Accuchecks Date 11/23/23 Time 09:13 - Radiology Impressions Radiology Exams & Impressions: Radiology Procedures Category Date Time Status CHEST 1 VIEW (PORTABLE) Stat Exams 11/23/23 08:[address] ANGIOGRAPHY NECK [CT] Stat Exams 11/23/23 09:51 Completed CTA HEAD W AND/OR WO CONTRAST [CT] Stat Exams 11/23/23 09:51 Completed ECHO W/2D AND DOPPLER [US] Routine Exams 11/23/23 12:56 Ordered HEAD WITHOUT CONTRAST [CT] Stat Exams 11/23/23 08:29 Completed MRI BRAIN W/O CONTRAST [MRI] Routine Exams 11/23/23 12:56 Ordered Assessment/Plan (1) Acute left-sided weakness Current Visit: Yes Status: Acute Assessment & Plan: - CT, CTA negative for acute concern - tele - EKG - tele- neurology consult - MRI brain, echo- pending - Plavix, ASA, statin gave in ER - Continue ASA daily and plvix if neurology agreeable - NIHSS score 1 Code(s): R53.1 - WEAKNESS (2) Smoker Current Visit: Yes Status: Chronic Assessment & Plan: - advised cessation - nicotine patch Code(s): F17.200 - NICOTINE DEPENDENCE, UNSPECIFIED, UNCOMPLICATED (3) Obesity (BMI 30.0-34.9) Current Visit: Yes Status: Chronic Assessment & Plan: - heart healthy diet - exercise control Code(s): E66.9 - OBESITY, UNSPECIFIED (4) HTN (hypertension) Current Visit: Yes Status: Chronic Assessment & Plan: - Bp elevated on admission as she has not taken BP meds today. - Will restart meds unless neurology wants them held for permissive HTN - awaiting neurology recs Code(s): I10 - ESSENTIAL (PRIMARY) HYPERTENSION (5) Hyperlipidemia Current Visit: Yes Status: Acute Assessment & Plan: - Continue statin - lipid panel Code(s): E78.5 - HYPERLIPIDEMIA, UNSPECIFIED (6) Hypokalemia Current Visit: No Status: Acute Assessment & Plan: - K+ 3.4 replaced- trend VTE: Plavix gave in ER- continue if ok with neurology. Next of KIN: Spouse D/C plan: -1-2 days Code status: Full Code(s): E87.6 - HYPOKALEMIA
[2023-11-23] MEDS ORDERED: MEDICATION INTERVENTION MC SCH ×3 (13:30→14:00)
[2023-11-23] MEDS ORDERED: ACYCLOVIR PO SCH (14:00)
--- NOTE | 2023-11-23 15:09 | XRAY ---
Indication: Left-sided weakness. Normal CT head, CTA neck, and CTA head exams. Sagittal, coronal, and axial MRI brain performed using T1, T2, FLAIR, diffusion, and ADC sequences. Comparison: None Ventriculosulcal pattern appears symmetric. No acute intracranial hemorrhage, abnormal extra-axial fluid collection, or mass effect. Diffusion images negative for restricted signal. Fourth ventricle is midline without hydrocephalus. 7/8 cranial nerve complex bilaterally symmetric. Normal flow void signal within the major intracerebral circulation. Normal-appearing craniocervical junction and sella turcica. Paranasal sinuses are clear. Impression: Normal MRI brain without contrast exam.
[2023-11-23] MEDS: NICODERM CQ 14 MG TOP SCH (15:14)
[2023-11-23] MEDS: Klor Con PO SCH ×2 (15:14→18:05)
[2023-11-23] MEDS: hydroDIURIL 25 MG PO SCH (16:06)
[2023-11-23] MEDS: CLONIDINE 0.1 MG TABLET PO SCH (16:07)
[2023-11-23] MEDS: Ambien 10 MG PO SCH (21:28)
[2023-11-23] MEDS ORDERED: ZOLPIDEM TARTRATE 12.5 MG PO SCH (22:00)
[2023-11-24] MEDS: TYLENOL 325 MG PO PRN (04:12)
[2023-11-24 04:34] LABS: Hematocrit 33.4 % (34.1-44.9); Hemoglobin 10.6 g/dL (11.2-15.7); Mean Cell Volume 79.1 fL (79.4-94.8); Mean Corpuscular Hemoglobin 25.1 pg (25.6-32.2); Mean Corpuscular Hgb Concent. 31.7 g/dL (32.2-35.5); Mean Platelet Volume 10.8 fL (9.4-12.3); Platelet Count 377 x10^3/uL (182-369); Red Blood Count 4.22 x10^6/uL (3.93-5.22); White Blood Count 9.2 x10^3/uL (3.98-10.04)
[2023-11-24 05:01] LABS: ALBUMIN 3.8 g/dL (3.5-5.0); ANION GAP 10.2 MEQ/L (5-15); BILIRUBIN,TOTAL 0.4 mg/dL (0.2-1.3); Calcium 8.9 mg/dL (8.4-10.2); Creatinine 1 1.07 mg/dL (0.52-1.04); EST GLOMERULAR FILTRATION RATE 63.7 ML/MIN; MAGNESIUM 2.1 mg/dL (1.6-2.3); Total Protein 6.7 g/dL (6.3-8.2)
[2023-11-24 07:42] VITALS: RESP 22; TEMP 96.9; O2SAT 97
[2023-11-24] MEDS: hydroDIURIL 25 MG PO SCH (08:59)
[2023-11-24] MEDS: ECOTRIN 81 MG PO SCH (08:59)
[2023-11-24] MEDS: CLONIDINE 0.1 MG TABLET PO SCH (08:59)
[2023-11-24] MEDS: PLAVIX Tablet PO SCH (08:59)
[2023-11-24] MEDS ORDERED: ACYCLOVIR PO PRN (09:50)
[2023-11-24] MEDS ORDERED: NON-FORMULARY ITEM (Dextroamphetamine/Amphetamine [Dextroamp-Amphetamin 30 Mg Tab] 30 MG T PO SCH (10:00)
[2023-11-24] MEDS ORDERED: NON-FORMULARY ITEM (Rosuvastatin Calcium [Rosuvastatin Calcium] 5 MG Tablet) PO SCH (10:00)
[2023-11-24 10:33] VITALS: BP 141/85; PULSE 67
--- NOTE | 2023-11-24 10:34 | PCM.DS ---
Discharge Summary Date of Admission: 11/23/23 12:42 Date of Discharge: 11/24/23 Admitting Physician: NADIRA BENNETT MD Consults: Consults on Case 11/23/23 09:52 Consult Neurology ROUTINE Primary Care Provider: EILEEN BA Allergies Allergies childrens advil Allergy (Severe, Uncoded 11/23/23 12:51) Difficulty Breathing pt states she can take advil but not childrens advil. Hospital Summary - Hospital Course Hospital Course: 11/23/23 is a 48 year old female with PMHX of hyperlipidemia, HTN, daily smoker, insomnia, and obesity. She presented in the ER with complaint of left-sided num bness and weakness. Patient reports she started to have some tingly numb feeling in the left foot yesterday while she was working and around 1 AM she woke her as she was having numbness across her upper and lower left extremities with wobbliness and tendency to fall on the left. Also reports subjective feeling of weakness in the left upper and lower extremity. No chest pain palpitations or shortness of breath reported. No history of previous stroke but does have a family history. Denies any headache, facial numbness, weakness, visual disturbance or difficulty speech. Tele- neurology consulted in ER and recommended MRI and echo for further evaluation of sxs. K+ 3.4 and replaced. ASA, Statin, Plavix and IV fluids started in the ER. CT and CTA negative. CXR shows cardiomegly. She reports no know hx of this and feels she keeps her BP well controlled most of the time. Trop x2 negative. She denies CP, SOB, abd pain, N/V/D. Bp elevated and she reports she did not take her meds yet today. Will restart them. NIHSS score 1, continue ASA 81mg daily. If ok with neurology will also start Plavix, awaiting recs. 11/24/23 Pt resting in bed. Discuss all radiology results were negative except echo and CXR. Discussed findings in detail. OP sleep study ordered as pt states he has loud snoring at night. Cardiology appointment made OP. Cholesterol appears to be improving from last lab draw and she will ehsan to f/u OP with PCP and contnue medication. Will start ASA 81 mg daily OP. No need to continue Plavix OP. K+ 4.0. She denies numbness or weakness of left side today. She denies any further concerns at this time. - Vitals & Intake/Output Vital Signs: Vital Signs Temperature 96.9 F 11/24/23 07:41 Pulse Rate 79 11/24/23 07:41 Respiratory Rate 22 11/24/23 07:41 Blood Pressure 138/102 11/24/23 07:41 O2 Sat by Pulse Oximetry 97 11/24/23 07:41 Intake & Output: Intake & Output 11/21/23 11/22/23 11/23/23 11/24/23 11:59 11:59 11:59 11:59 Intake Total 1280 Balance 1280 Weight 84.368 kg 91.6 kg - Lab Result Diagrams: 11/24/23 04:25 11/24/23 04:25 Lab Results-Last 24 Hrs: Lab Results-Last 24 Hours 11/23/23 11/23/23 11/23/23 Range/Units 10:52 15:15 17:50 WBC (3.98-10.04) x10^3/uL RBC (3.93-5.22) x10^6/uL Hgb (11.2-15.7) g/dL Hct (34.1-44.9) % MCV (79.4-94.8) fL MCH (25.6-32.2) pg MCHC (32.2-35.5) g/dL RDW (11.7-14.4) % Plt Count (182-369) x10^3/uL MPV (9.4-12.3) fL Sodium (135-145) mmol/L Potassium (3.5-5.1) mmol/L Chloride (98-107) mmol/L Carbon Dioxide (22-30) mmol/L Anion Gap (5-15) MEQ/L BUN (7-17) mg/dL Creatinine (0.52-1.04) mg/dL Estimated GFR ML/MIN Glucose (74-106) mg/dL Hemoglobin A1c (4.5-6.0) % Calcium (8.4-10.2) mg/dL Magnesium (1.6-2.3) mg/dL Total Bilirubin (0.2-1.3) mg/dL AST (14-36) U/L ALT (0-35) U/L Alkaline Phosphatase (38-126) U/L Troponin I 0.013 0.014 0.013 (0.000-0.033) ng/mL Serum Total Protein (6.3-8.2) g/dL Albumin (3.5-5.0) g/dL Triglycerides (30-150) mg/dL Cholesterol (50-200) mg/dL LDL Cholesterol (30-100) mg/dL HDL Cholesterol (40-60) mg/dL Heart Disease Risk Ratio 11/23/23 11/24/23 11/24/23 Range/Units 22:05 04:25 04:25 WBC 9.2 (3.98-10.04) x10^3/uL RBC 4.22 (3.93-5.22) x10^6/uL Hgb 10.6 L (11.2-15.7) g/dL Hct 33.4 L (34.1-44.9) % MCV 79.1 L (79.4-94.8) fL MCH 25.1 L (25.6-32.2) pg MCHC 31.7 L (32.2-35.5) g/dL RDW 15.0 H (11.7-14.4) % Plt Count 377 H (182-369) x10^3/uL MPV 10.8 (9.4-12.3) fL Sodium 135 (135-145) mmol/L Potassium 4.4 D 4.0 (3.5-5.1) mmol/L Chloride 105 (98-107) mmol/L Carbon Dioxide 24 (22-30) mmol/L Anion Gap 10.2 (5-15) MEQ/L BUN 18 H (7-17) mg/dL Creatinine 1.07 H (0.52-1.04) mg/dL Estimated GFR 63.7 ML/MIN Glucose 105 (74-106) mg/dL Hemoglobin A1c (4.5-6.0) % Calcium 8.9 (8.4-10.2) mg/dL Magnesium 2.1 (1.6-2.3) mg/dL Total Bilirubin 0.40 (0.2-1.3) mg/dL AST 21 (14-36) U/L ALT 15 (0-35) U/L Alkaline Phosphatase 95 (38-126) U/L Troponin I (0.000-0.033) ng/mL Serum Total Protein 6.7 (6.3-8.2) g/dL Albumin 3.8 (3.5-5.0) g/dL Triglycerides 98 (30-150) mg/dL Cholesterol 223 H (50-200) mg/dL LDL Cholesterol 160 H (30-100) mg/dL HDL Cholesterol 40 (40-60) mg/dL Heart Disease Risk Ratio 6.0 11/24/23 Range/Units 04:25 WBC (3.98-10.04) x10^3/uL RBC (3.93-5.22) x10^6/uL Hgb (11.2-15.7) g/dL Hct (34.1-44.9) % MCV (79.4-94.8) fL MCH (25.6-32.2) pg MCHC (32.2-35.5) g/dL RDW (11.7-14.4) % Plt Count (182-369) x10^3/uL MPV (9.4-12.3) fL Sodium (135-145) mmol/L Potassium (3.5-5.1) mmol/L Chloride (98-107) mmol/L Carbon Dioxide (22-30) mmol/L Anion Gap (5-15) MEQ/L BUN (7-17) mg/dL Creatinine (0.52-1.04) mg/dL Estimated GFR ML/MIN Glucose (74-106) mg/dL Hemoglobin A1c 5.19 (4.5-6.0) % Calcium (8.4-10.2) mg/dL Magnesium (1.6-2.3) mg/dL Total Bilirubin (0.2-1.3) mg/dL AST (14-36) U/L ALT (0-35) U/L Alkaline Phosphatase (38-126) U/L Troponin I (0.000-0.033) ng/mL Serum Total Protein (6.3-8.2) g/dL Albumin (3.5-5.0) g/dL Triglycerides (30-150) mg/dL Cholesterol (50-200) mg/dL LDL Cholesterol (30-100) mg/dL HDL Cholesterol (40-60) mg/dL Heart Disease Risk Ratio - Radiology Exams Ordered Rad Exams-Entire Visit: Radiology Procedures Category Date Time Status CHEST 1 VIEW (PORTABLE) Stat Exams 11/23/23 08:[address] ANGIOGRAPHY NECK [CT] Stat Exams 11/23/23 09:51 Completed CTA HEAD W AND/OR WO CONTRAST [CT] Stat Exams 11/23/23 09:51 Completed ECHO W/2D AND DOPPLER [US] Routine Exams 11/23/23 12:56 Taken HEAD WITHOUT CONTRAST [CT] Stat Exams 11/23/23 08:29 Completed MRI BRAIN W/O CONTRAST [MRI] Routine Exams 11/23/23 12:56 Completed - Procedures and Test Procedures and Tests throughout Hospitalization: Therapy Orders & Screens 11/23/23 13:20 PT Eval & Treat ( Order) ONCE Reason for Eval:: let sideded weakness Diagnosis: STROKE RULE OUT 11/23/23 14:00 Smoking Cessation Education ONCE Comment: Diagnosis: STROKE RULE OUT Smoking Status: Current every day smoker How long have you smoked: 6 YEARS Approximately how many cigarettes per day: 10 Do you dip or chew tobacco: No Discharge Exam General Appearance: no apparent distress, alert, obese Neurologic Exam: alert, oriented x 3, cooperative, normal mood/affect, nml cerebellar function, sensation nml, No motor deficits Eye Exam: PERRL, EOMI, eyes nml inspection Ears, Nose, Throat Exam: normal ENT inspection, pharynx normal, moist mucous membranes Neck Exam: normal inspection, non-tender, supple, full range of motion Respiratory Exam: normal breath sounds, lungs clear, No respiratory distress Cardiovascular Exam: regular rate/rhythm, normal heart sounds Gastrointestinal/Abdomen Exam: soft, No tenderness, No mass Pelvic Exam: deferred Rectal Exam: deferred Back Exam: normal inspection, normal range of motion, No CVA tenderness, No vertebral tenderness Extremity Exam: normal inspection, normal range of motion Skin Exam: normal color, warm, dry Final Diagnosis/Problem List - Final Discharge Diagnosis/Problem (1) Acute left-sided weakness Current Visit: Yes Status: Resolved Code(s): R53.1 - WEAKNESS (2) Smoker Current Visit: Yes Status: Chronic Code(s): F17.200 - NICOTINE DEPENDENCE, UNSPECIFIED, UNCOMPLICATED (3) Obesity (BMI 30.0-34.9) Current Visit: Yes Status: Chronic Code(s): E66.9 - OBESITY, UNSPECIFIED (4) HTN (hypertension) Current Visit: Yes Status: Chronic Code(s): I10 - ESSENTIAL (PRIMARY) HYPERTENSION (5) Hyperlipidemia Current Visit: Yes Status: Acute Code(s): E78.5 - HYPERLIPIDEMIA, UNSPECIFIED (6) Hypokalemia Current Visit: No Status: Resolved Assessment & Plan: (1) Acute left-sided weakness Current Visit: Yes Status: Acute Assessment & Plan: - CT, CTA negative for acute concern - tele - EKG - tele- neurology consult - MRI brain, echo- pending - Plavix, ASA, statin gave in ER - Continue ASA daily and plavix if neurology agreeable - NIHSS score 1 11/23 - resolved - MRI negative - Echo results reviewed- EF67% - lipid panel reviewed- improved- continue home meds and f/u OP with PCP for continued monitoring. - asa 81mg daily - stop plavix Code(s): R53.1 - WEAKNESS (2) Smoker Current Visit: Yes Status: Chronic Assessment & Plan: - advised cessation- 1800- quit- now program card provided - nicotine patch Code(s): F17.200 - NICOTINE DEPENDENCE, UNSPECIFIED, UNCOMPLICATED (3) Obesity (BMI 30.0-34.9) Current Visit: Yes Status: Chronic Assessment & Plan: - heart healthy diet - exercise control Code(s): E66.9 - OBESITY, UNSPECIFIED (4) HTN (hypertension) Current Visit: Yes Status: Chronic Assessment & Plan: - Bp elevated on admission as she has not taken BP meds today. - Will restart meds unless neurology wants them held for permissive HTN - awaiting neurology recs 11/23 - restart home meds- Bp improved with meds Code(s): I10 - ESSENTIAL (PRIMARY) HYPERTENSION (5) Hyperlipidemia Current Visit: Yes Status: Acute Assessment & Plan: - Continue statin - lipid panel- reviewed Code(s): E78.5 - HYPERLIPIDEMIA, UNSPECIFIED (6) Hypokalemia Current Visit: No Status: Acute Assessment & Plan: - K+ 3.4 replaced- trend 11/21 - resolved Code(s): E87.6 - HYPOKALEMIA (7) Obstructive sleep apnea Current Visit: Yes Status: Acute Assessment & Plan: - OP sleep study ordered Code(s): G47.33 - OBSTRUCTIVE SLEEP APNEA (ADULT) (PEDIATRIC) (8) Cardiomegaly Current Visit: Yes Status: Acute Assessment & Plan: - as seen on chest XR - f/u with cardiology OP Code(s): I51.7 - CARDIOMEGALY - Discharge Discharge Date: 11/24/23 Disposition: Home, Self-Care Condition: Stable Prescriptions: New Aspirin EC 81 mg [Ecotrin 81 mg] 81 mg PO DAILY 30 Days #30 tablet Continue Hydrochlorothiazide 25 mg [hydroDIURIL 25 MG] 25 mg PO DAILY Rosuvastatin Calcium 5 mg PO DAILY cloNIDine HCL 0.2 mg PO BID Valacyclovir HCl [Valacyclovir] 1,000 mg PO DAILY PRN PRN Reason: FEVER BLISTERS Ergocalciferol (Vitamin D2) [Vitamin D2] 50,000 unit PO Q7D Dextroamphetamine/Amphetamine [Dextroamp-Amphetamin 30 mg Tab] 30 mg PO DAILY Zolpidem Tartrate [Zolpidem Tartrate ER] 12.5 mg PO HS Naproxen 500 mg [Naprosyn 500 MG] 500 mg PO BID PRN PRN Reason: Pain Outpatient Orders: Sleep Study Facility: [facility], Location: RESPIRATORY THERAPY Instructions: Stroke - Discharge instructions Follow up with: ANIKA TOPETE MD [NON-STAFF PHY W/O PRIVILEGES] - 12/12/23 8:30 am EILEEN BA NP [Primary Care Provider] - 11/30/23 10:15 am Forms: Discharge Instructions
[2023-11-24] MEDS ORDERED: Zocor 10MG PO SCH (22:00)
[2023-11-27] MEDS ORDERED: VITAMIN D2 PO SCH (10:00)
== END 2023-11-24 11:00 | disposition home or self-care (01) ==
LOC: ED 08:16 → MED SURG 12:42
PROVIDERS: ADMIT Internal Medicine; ATTEND Internal Medicine
DX: R53.1 Weakness (principal); R20.0 Anesthesia of skin; G47.33 Obstructive sleep apnea (adult) (pediatric); I11.9 Hypertensive heart disease without heart failure; E78.00 Pure hypercholesterolemia, unspecified; E87.6 Hypokalemia; F17.200 Nicotine dependence, unspecified, uncomplicated; E66.9 Obesity, unspecified; E78.5 Hyperlipidemia, unspecified; Z79.899 Other long term (current) drug therapy
CPT/HCPCS: 36000; 36415; 70450; 70496; 70498; 70551; 71045; 80053; 80061; 81001; 82947; 83036; 83721; 83735; 84132; 84484; 85025; 85027; 85610; 85730; 93005; 93268; 93306; 99285; Q3014; A9270-GY; G0378